=== PATIENT | male | born 1980 | race Two or more races ===

== ENCOUNTER 2023-01-09 15:45 | Emergency (ER) | payer SELFPAY ==
[2023-01-09 15:46] VITALS: BP 147/85; PULSE 90; RESP 16; TEMP 36.3; O2SAT 99; BMI 26.6
--- NOTE | 2023-01-09 16:10 | PC.NURSE ---
Dr. Gannon at [facility] for pt eval
--- NOTE | 2023-01-09 16:20 | HMH.EDGENADL ---
Discharge Plan Disposition Patient Disposition: Home, Self-Care Chief Complaint: Wound/Laceration Referrals Follow up/Referrals: Provider,Referral, MD [Primary Care Provider] - See instructions Activity Restrictions/Add. Instructions Additional Instructions/Restrictions: Call your family doctor to establish care for this visit to the emergency department and schedule follow-up within 48 hours to ensure improvement. If you have any worsening of your condition or any other concerning signs or symptoms, return to the emergency department or your primary care doctor for further evaluation. [place] will remain in for 10 days Clinical Impressions Clinical Impression: Laceration of scalp Instructions Patient Instructions: DI for Laceration Repair Discharge ED Provider: dE Gannon General Adult HPI General Chief complaint: Wound/Laceration Stated complaint: AO [id number] lac to head Time Seen by Provider: 01/09/23 15:56 Mode of Arrival: Ambulatory Source of Information: Patient Limitations: No Limitations Description of Symptoms (Recalled from ER Triage Doc. by RN): 42 yo M presents to ED for laceration to head. 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 pt with clean approximated laceration to right side of scalp. tetanus history unknown. History of Present Illness HPI narrative: Otherwise healthy 42-year-old male presenting with head laceration. Patient was working when something work fell on his head, creating laceration. Hemostatic with direct pressure. Fully vaccinated and last tetanus shot unable to be remembered. No loss of consciousness, or any other pain. Related Data Allergies Allergy/AdvReac Type Severity Reaction Status Date / Time No Known Allergies Allergy Verified 01/09/23 16:02 [facility] Disclaimer: The information contained in this section may have been updated after the patient was seen, as this information can be updated by other users. Social History Smoking Status: Never smoker alcohol intake: never current occupational status: employed Travel in the last 8 weeks: None ROS Obtained: Yes All systems reviewed & no additional complaints except as documented Physical Exam General General appearance: alert, in no apparent distress and other ( ) Head Head exam: normocephalic and other (3 cm laceration R parietal scalp) Eye Eye exam: Present normal appearance, PERRL and EOMI ENT ENT exam: Present mucous membranes moist Neck Neck exam: Present normal inspection, full ROM and trachea midline Respiratory Respiratory exam: Absent respiratory distress, wheezes, stridor, accessory muscle use or prolonged expiratory phase Cardiovascular Cardiovascular exam: Present regular rate and normal rhythm Abdominal Exam Abdominal exam: Present soft; Absent distention, tenderness, guarding, rebound, rigidity or normal bowel sounds Extremities Exam Extremities exam: Absent edema Neurological Exam Neurological exam: Present alert, oriented X3, CN II-XII intact and normal gait; Absent motor sensory deficit Skin Skin exam: Present warm and dry; Absent diaphoresis or erythema Medical Decision Making Medical Records Medical records reviewed: Yes I reviewed the patient's medical records. Shahram Inquiry Pt receiving controlled substance: No Shahram was queried for this patient: No Vital Signs: 01/09/23 15:46 Temperature 97.4 F L Temperature Source Oral Pulse Rate [Left] 90 Respiratory Rate 16 Blood Pressure [Right Arm] 147/85 H Blood Pressure Mean [Right Arm] 105 02 Sat by Pulse Oximetry 99 Orders (Tests/Meds): ED MEDICATIONS Discontinued Medications Generic Name Dose Route Start Last Admin Trade Name Freq PRN Reason Stop Dose Admin Tetanus/Reduced Diphtheria/Acell Pertussis 0.5 ml 01/09/23 16:02 01/09/23 16:18 Tet/Diphth/Pert-Adult 0.5ml Syringe IM 01/09/23 16:03 0.5 ml .ONCE ONE Administratio
[2023-01-09 16:28] VITALS: BP 127/79; PULSE 75; O2SAT 99
[2023-01-09 16:29] VITALS: BP 127/79; PULSE 75; RESP 14; TEMP 36.3; O2SAT 99
== END 2023-01-09 16:31 | disposition home or self-care (01) ==
PROVIDERS: Emergency Provider Emergency Medicine
DX: S01.01XA Laceration without foreign body of scalp, initial encounter (principal); Z23 Encounter for immunization; W20.8XXA Other cause of strike by thrown, projected or falling object, initial encounter; Y99.0 Civilian activity done for income or pay
CPT/HCPCS: 12002; 90715; 96372; 99283